=== PATIENT | male | born 1940 | race Caucasian/White ===

== ENCOUNTER 2022-09-04 21:40 | Emergency (ER) | payer OTHER ==
[~2022-09-04] VITALS: Ht 182.9 cm; Wt 77.1 kg
[2022-09-04] MEDS ORDERED: LIDOCAINE 2% (GLYDO= UROJET) 10 ML JELLY MM ONE (22:15)
[2022-09-04 22:26] LABS: MEAN CORPUSCULAR HEMOGLOBIN 30.6 uug (23.8-33.4); MEAN CORPUSCULAR VOLUME 91.9 fL (73.0-96.2); PLATELET COUNT (AUTO) 296 K/uL (152-348)
[2022-09-04 22:34] LABS: CARBON DIOXIDE 25 mmol/L (21-32); CHLORIDE 105 mmol/L (98-107); CREATININE 1.6 mg/dL (0.6-1.3); GLUCOSE 116 mg/dL (74-106); POTASSIUM 4.8 mmol/L (3.5-5.1); UREA NITROGEN, BLOOD 23 mg/dL (7-18)
[2022-09-04 22:43] LABS: ALANINE AMINOTRANSFERASE 49 U/L (16-63); ALKALINE PHOSPHATASE 101 U/L (50-136); ASPARTATE AMINOTRANSFERASE 23 U/L (15-37); BILIRUBIN,DIRECT 0.1 mg/dL (0.0-0.2); BILIRUBIN,TOTAL 0.3 mg/dL (0.2-1.0)
[2022-09-04] MEDS ORDERED: IV NORMAL SALINE 500 ML BAG IV ONE (23:15)
--- NOTE | 2022-09-05 00:01 | NUR ---
Patient to be transfer to [place] per patient's insurance.
--- NOTE | 2022-09-05 00:26 | NUR ---
Dr. Morrison speaking with Dr. Rosas of [place].
[2022-09-05] MEDS ORDERED: LIDOCAINE 2% (GLYDO= UROJET) 10 ML JELLY MM ONE (01:50)
--- NOTE | 2022-09-05 02:21 | NUR ---
Attempted to straight cath patient to obtain urine sample. No urine. Dr Morrison aware.
--- NOTE | 2022-09-05 02:26 | NUR ---
Patient picked up by ambulance to be transfered to [place] via [facility]. Patient in stable condition, no signs of distress noted.
== END 2022-09-05 02:42 | disposition short-term general hospital (02) ==
LOC: ER 21:42
DX: R55 Syncope and collapse (principal); F03.90 Unspecified dementia, unspecified severity, without behavioral disturbance, psychotic disturbance, mood disturbance, and anxiety; K63.89 Other specified diseases of intestine; R07.89 Other chest pain; E78.5 Hyperlipidemia, unspecified; Z20.822 Contact with and (suspected) exposure to COVID-19
CPT/HCPCS: 99285; 74176; 71045; 80076; 80048; 85025; 84484 ×2; 93005; 87426; J7040; A4663; C1758

== ENCOUNTER 2023-12-24 12:26 | Emergency (ER) | payer OTHER ==
[~2023-12-24] VITALS: Ht 182.9 cm; Wt 74.8 kg
[2023-12-24] MEDS ORDERED: VENL75CA62 PO (12:38)
[2023-12-24] MEDS ORDERED: MEMA10TA56 PO (12:38)
[2023-12-24] MEDS ORDERED: SIMV-49 PO (12:38)
[2023-12-24] MEDS ORDERED: LOSA25TA27 PO (12:38)
[2023-12-24] MEDS ORDERED: OMEP20CA15 PO (12:38)
[2023-12-24] MEDS: DEXAMETHASONE SOD PHOSPHATE 4 MG INJ IV ONE (13:00)
[2023-12-24 13:08] LABS: ABG HCO3 10.9 mmol/L (22.0-26.0); ABG PCO2 18.6 mmHg (35.0-48.0); ABG PH 7.387 (7.340-7.440); ABG PO2 317.3 mmHg (75.0-100.0); ABG SITE LEFT RADIAL; ABG TOTAL HEMOGLOBIN 16.2 G/dL (14.0-18.0); AaDO2 99.7 mmHg; COHb 0.3 % (0.0-3.9); MetHb 0.4 % (0.0-1.5)
[2023-12-24] MEDS ORDERED: CEFTRIAXONE /D5W 50ML IVPB **ER PYXIS IV ONE (13:08)
[2023-12-24] MEDS ORDERED: VANCOMYCIN IV 200 ML ONE (13:08)
[2023-12-24] MEDS ORDERED: DEXAMETHASONE SOD PHOSPHATE 4 MG INJ ONE (13:09)
[2023-12-24 13:26] LABS: BASOPHILS % (AUTO) 0.4 % (0.0-2.0); HEMATOCRIT 47.2 % (36.7-47.1); HEMOGLOBIN 15.8 g/dL (12.5-16.3); LYMPHOCYTES # (AUTO) 0.7 K/uL (0.8-4.8); LYMPHOCYTES % (AUTO) 8.4 % (20.5-51.5); MEAN CORPUSCULAR HEMOGLOBIN 31.6 uug (23.8-33.4); MEAN CORPUSCULAR HGB CONC 33 g/dL (32.5-36.3); MEAN CORPUSCULAR VOLUME 94.5 fL (73.0-96.2); MONOCYTES # (AUTO) 0.4 K/uL (0.1-1.30); MONOCYTES % (AUTO) 4.6 % (0.0-11.0); NEUTROPHILS # (AUTO) 7.6 K/uL (1.8-8.9); NEUTROPHILS % (AUTO) 86.6 % (38.5-71.5); PLATELET COUNT (AUTO) 224 K/uL (152-348); RED CELL DISTRIBUTION WIDTH 14.8 % (12.1-16.2); WHITE BLOOD COUNT (AUTO) 8.7 K/uL (3.6-10.2)
[2023-12-24 13:33] LABS: CALCIUM 9.3 mg/dL (8.5-10.1); CARBON DIOXIDE 17 mmol/L (21-32); CHLORIDE 101 mmol/L (98-107); CREATININE 2.1 mg/dL (0.6-1.3); DIFFERENTIAL COMMENT 1; GLUCOSE 135 mg/dL (74-106); POTASSIUM 4.2 mmol/L (3.5-5.1); SODIUM SERUM 138 mmol/L (136-145); UREA NITROGEN, BLOOD 29 mg/dL (7-18)
[2023-12-24] MEDS: IV NORMAL SALINE 1000 ML BAG IV ONE ×2 (13:38→15:27)
[2023-12-24] MEDS: VANCOMYCIN IV 1,000 MG in IV DEXTROSE 5% 250 ML IV ONE (13:38)
[2023-12-24] MEDS: CEFTRIAXONE 1 G in IV DEXTROSE 5% 50 ML IV ONE (13:39)
[2023-12-24] MEDS: CLINDAMYCIN PHOSPHATE IV 600 MG in IV DEXTROSE 5% 100 ML IV ONE (13:40)
[2023-12-24 13:42] LABS: ALANINE AMINOTRANSFERASE 37 U/L (16-63); ALBUMIN 3.1 g/dL (3.4-5.0); ALKALINE PHOSPHATASE 81 U/L (50-136); ASPARTATE AMINOTRANSFERASE 32 U/L (15-37); BILIRUBIN,DIRECT 0.3 mg/dL (0.0-0.2); BILIRUBIN,TOTAL 0.6 mg/dL (0.2-1.0); TOTAL PROTEIN, SERUM 7.8 g/dL (6.4-8.2)
[2023-12-24] MEDS ORDERED: CLINDAMYCIN 600 MG PIGGYBACK**ER OMNI IV ONE (13:42)
[2023-12-24 13:44] LABS: LACTIC ACID 9.5 mmol/L (0.4-2.0)
[2023-12-24 14:18] LABS: *BILIRUBIN,URIN 1+ (NEGATIVE); *CLARITY,URINE CLEAR (CLEAR); *COLOR,URINE YELLOW (YELLOW); *KETONES,URINE TRACE (NEGATIVE); *PROTEIN,URINE 3+ (NEGATIVE); *UROBILINOGEN,URINE 0.2 E.U./dl (NORMAL); LEUKOCYTE ESTERASE ,URINE NEGATIVE (NEGATIVE); NITRITE, URINE NEGATIVE (NEGATIVE); PH,URINE 5.5 (5.0-8.0); UGLUCOSE NEGATIVE (NEGATIVE)
[2023-12-24 14:41] LABS: *BLOOD, URINE TRACE (NEGATIVE)
[2023-12-24 15:02] LABS: RBC,URINE 0-3 /HPF (0-3); WBC,URINE 0-3 /HPF (0-3)
[2023-12-24 15:03] LABS: BACTERIA,URINE FEW /HPF (NONE SEEN); SQUAMOUS EPITHELIAL CELL,UR FEW /HPF (NONE SEEN)
[2023-12-24 20:04] VITALS: O2SAT 99
== END 2023-12-24 21:20 | disposition short-term general hospital (02) ==
LOC: ER 12:26
DX: U07.1 COVID-19 (principal); A41.9 Sepsis, unspecified organism; R65.21 Severe sepsis with septic shock; J18.9 Pneumonia, unspecified organism; K21.9 Gastro-esophageal reflux disease without esophagitis; G40.909 Epilepsy, unspecified, not intractable, without status epilepticus; F03.90 Unspecified dementia, unspecified severity, without behavioral disturbance, psychotic disturbance, mood disturbance, and anxiety; E78.00 Pure hypercholesterolemia, unspecified; Z87.440 Personal history of urinary (tract) infections; Z79.899 Other long term (current) drug therapy
CPT/HCPCS: 36569; 80076; 80048; 81001; 83880; 85025; 84145; 85730; 87426; 87040 ×2; 84484; 36415; 82803; 99291; 83605 ×2; 87086; 93005; 71045 ×2; 96365; 96366; 96368; 96375; 36600 ×2; 94660 ×2; J0696; J3490 ×2; J1100; J3370; J7040 ×4; A4606; A4663

== ENCOUNTER 2024-03-17 13:08 | Emergency (ER) | payer OTHER ==
[~2024-03-17] VITALS: Ht 172.7 cm; Wt 77.1 kg
[~2024-03-17 13:08] MED LIST: LOSA25TA27 PO; MEMA10TA56 PO; OMEP20CA15 PO; SIMV-49 PO; VENL75CA62 PO
[2024-03-17 13:29] LABS: BASOPHILS % (AUTO) 0.2 % (0.0-2.0); HEMATOCRIT 42.5 % (36.7-47.1); HEMOGLOBIN 14.2 g/dL (12.5-16.3); LYMPHOCYTES # (AUTO) 0.7 K/uL (0.8-4.8); LYMPHOCYTES % (AUTO) 5.2 % (20.5-51.5); MEAN CORPUSCULAR HEMOGLOBIN 31.5 uug (23.8-33.4); MEAN CORPUSCULAR HGB CONC 33 g/dL (32.5-36.3); MEAN CORPUSCULAR VOLUME 94.2 fL (73.0-96.2); MONOCYTES # (AUTO) 0.6 K/uL (0.1-1.30); MONOCYTES % (AUTO) 4.6 % (0.0-11.0); NEUTROPHILS # (AUTO) 11.9 K/uL (1.8-8.9); PLATELET COUNT (AUTO) 228 K/uL (152-348); RED BLOOD CELL COUNT(AUTO) 4.51 MIL/uL (4.06-5.63); RED CELL DISTRIBUTION WIDTH 14.2 % (12.1-16.2); WHITE BLOOD COUNT (AUTO) 13.3 K/uL (3.6-10.2)
[2024-03-17 13:33] LABS: DIFFERENTIAL COMMENT 1
[2024-03-17 13:44] LABS: *BILIRUBIN,URIN NEGATIVE (NEGATIVE); *BLOOD, URINE 2+ (NEGATIVE); *CLARITY,URINE CLEAR (CLEAR); *COLOR,URINE YELLOW (YELLOW); *KETONES,URINE NEGATIVE (NEGATIVE); *PROTEIN,URINE 1+ (NEGATIVE); LEUKOCYTE ESTERASE ,URINE NEGATIVE (NEGATIVE); NITRITE, URINE POSITIVE (NEGATIVE); UGLUCOSE NEGATIVE (NEGATIVE)
[2024-03-17 13:45] LABS: BACTERIA,URINE MODERATE /HPF (NONE SEEN); RBC,URINE 20-50 /HPF (0-3); WBC,URINE 0-3 /HPF (0-3)
[2024-03-17] MEDS ORDERED: PIPERACILLIN/TAZOBACTAM/D5W 50 ML IV ONE (13:46)
[2024-03-17] MEDS: IV NORMAL SALINE 1000 ML BAG IV ONE (13:47)
[2024-03-17] MEDS: PIPERACILLIN SODIUM/TAZOBACTAM 4.5 G in IV DEXTROSE 5% 50 ML IV ONE (13:48)
[2024-03-17 13:52] LABS: ALANINE AMINOTRANSFERASE 24 U/L (16-63); ALBUMIN 3.7 g/dL (3.4-5.0); ALKALINE PHOSPHATASE 88 U/L (50-136); ASPARTATE AMINOTRANSFERASE 28 U/L (15-37); BILIRUBIN,DIRECT 0.2 mg/dL (0.0-0.2); BILIRUBIN,TOTAL 0.6 mg/dL (0.2-1.0); CALCIUM 10.4 mg/dL (8.5-10.1); CARBON DIOXIDE 26 mmol/L (21-32); CHLORIDE 108 mmol/L (98-107); CREATININE 1.4 mg/dL (0.6-1.3); GLUCOSE 129 mg/dL (74-106); NT-PRO BNP 765 pg/mL (0-125); POTASSIUM 4.3 mmol/L (3.5-5.1); SODIUM SERUM 145 mmol/L (136-145); TOTAL PROTEIN, SERUM 7.9 g/dL (6.4-8.2); UREA NITROGEN, BLOOD 23 mg/dL (7-18)
[2024-03-17] MEDS ORDERED: MEMA10TA PO (14:07)
[2024-03-17] MEDS ORDERED: DOCU50CA13 PO (14:07)
[2024-03-17] MEDS ORDERED: OMEP20TA20 PO (14:07)
[2024-03-17] MEDS ORDERED: CHOL2000 PO (14:07)
[2024-03-17] MEDS ORDERED: VENL75TA4 PO (14:07)
[2024-03-17] MEDS ORDERED: LOSA50TA39 PO (14:07)
[2024-03-17] MEDS ORDERED: CHOL100045 PO (14:07)
[2024-03-17] MEDS ORDERED: ASPI81TA31 PO (14:07)
[2024-03-17 17:39] VITALS: O2SAT 95
== END 2024-03-17 18:00 ==
LOC: ER 13:08
DX: G93.41 Metabolic encephalopathy (principal); J18.9 Pneumonia, unspecified organism; G40.909 Epilepsy, unspecified, not intractable, without status epilepticus; E78.00 Pure hypercholesterolemia, unspecified; K21.9 Gastro-esophageal reflux disease without esophagitis; F03.90 Unspecified dementia, unspecified severity, without behavioral disturbance, psychotic disturbance, mood disturbance, and anxiety; Z20.822 Contact with and (suspected) exposure to COVID-19; Z79.82 Long term (current) use of aspirin; Z79.899 Other long term (current) drug therapy
CPT/HCPCS: 99285; 96365; 71045; 87426; 87804 ×2; 80076; 80048; 81001; 83880; 85025; 84145; 87040; 84484; 36415; 93005; 83605; J2543; J7040 ×2; 87077; A4606; A4663; C1758